=== PATIENT | female | born 1985 | race Caucasian/White ===

== ENCOUNTER 2020-03-15 12:22 | Emergency (ER) | payer OTHER ==
[~2020-03-15] VITALS: Ht 167.6 cm; Wt 73.9 kg
[2020-03-15 12:43] VITALS: BP 128/86
[2020-03-15] MEDS ORDERED: KETOROLAC 30 MG/ML VIAL IM ONE (13:25)
[2020-03-15] MEDS ORDERED: ONDANSETRON 4 MG ODT PO ONE (13:25)
[2020-03-15 16:44] LABS: APPEARANCE,URINE CLEAR (CLEAR); BILIRUBIN,URINE NEGATIVE (NEGATIVE); BLOOD, URINE 1+ (NEGATIVE); COLOR,URINE YELLOW (YELLOW); LEUKOCYTE ESTERASE ,URINE NEGATIVE (NEGATIVE); NITRITE, URINE NEGATIVE (NEGATIVE); UGLUCOSE NEGATIVE (NEGATIVE)
--- NOTE | 2020-03-15 16:49 | NUR ---
Patient discharged with v/s stable. Written and verbal after care instructions given and explained. Patient alert, oriented and verbalized understanding of instructions. Ambulatory with steady gait. All questions addressed prior to discharge. ID band removed. Patient advised to follow up with PMD. Rx of tramadol and zofran given. Patient educated on indication of medication including possible reaction and side effects. Opportunity to ask questions provided and answered.
[2020-03-15 17:06] LABS: WBC,URINE 0-5 /HPF (0-5)
== END 2020-03-15 16:49 | disposition home or self-care (01) ==
LOC: MED 12:22
DX: R10.2 Pelvic and perineal pain (principal); R11.2 Nausea with vomiting, unspecified; N93.9 Abnormal uterine and vaginal bleeding, unspecified; N83.202 Unspecified ovarian cyst, left side
CPT/HCPCS: 76856; 81001; 81025; 93976; 96372; 99284; J1885; Q0162

== ENCOUNTER 2020-08-05 16:20 | Emergency (ER) | payer OTHER ==
[~2020-08-05] VITALS: Ht 162.6 cm; Wt 73.5 kg
[2020-08-05 16:25] VITALS: BP 142/86
--- NOTE | 2020-08-05 16:33 | NUR ---
RUPERT CALDERON AT BEDSIDE EXAMINING PATIENT
--- NOTE | 2020-08-05 16:35 | NUR ---
PATIENT PRESENTS TO ED WITH RIGHT SIDED CHEST PAIN X2 HOURS . PT STATES SHE IS ALSO FEELING ANXIETY . DENIES N/V/D; SKIN IS PINK/WARM/DRY; AAOX4 WITH EVEN AND STEADY GAIT; LUNGS CLEAR BL; HR EVEN AND REGULAR; PT DENIES ANY FEVER, CP, SOB, OR COUGH AT THIS TIME; PATIENT STATES PAIN OF 5/10 AT THIS TIME; VSS; PATIENT POSITIONED FOR COMFORT; HOB ELEVATED; BEDRAILS UP X2; BED DOWN. ER MD MADE AWARE OF PT STATUS.
[2020-08-05] MEDS ORDERED: LORazepam 1 MG TAB PO ONE (17:05)
[2020-08-05] MEDS ORDERED: LORA-476 PO (18:03)
[2020-08-05 18:23] VITALS: BP 134/81
== END 2020-08-05 18:23 | disposition home or self-care (01) ==
LOC: MED 16:20
DX: F41.0 Panic disorder [episodic paroxysmal anxiety] (principal); R07.9 Chest pain, unspecified; Z79.899 Other long term (current) drug therapy
CPT/HCPCS: 71045; 81025; 93005; 99285

== ENCOUNTER 2020-10-01 09:04 | Emergency (ER) | payer OTHER ==
[~2020-10-01] VITALS: Ht 167.6 cm; Wt 73.9 kg
[~2020-10-01 09:04] MED LIST: LORA-476 PO
[2020-10-01 09:26] VITALS: BP 135/62
--- NOTE | 2020-10-01 09:32 | NUR ---
pt ambulated to bed 08.
--- NOTE | 2020-10-01 09:41 | NUR ---
35 Y FEMALE WITH COMPLAINTS OF PELVIC PAIN, VAGINAL BLEEDING/SPOTTING X YESTERDAY. PT ALSO STATES SHE HAS BEEN HAVING NAUSEA/VOMITTING. PT DENIES BLOOD IN VOMIT. PT STATES SHE HAS EXPERINCED PAIN ON/OFF FOR PAST MONTH DUE TO MEDICAL HX AND THIS MORNING SHE STATED PAIN WAS WORSE. PT STATES "SHE CALLED HER OB AND WAS TOLD TO COME TO THE ER DUE TO PAIN." PT STATES N/V STARTED LAST NIGHT AND HAS VOMITTED TWICE SINCE LAST NIGHT. PT STATES SHE HAS HAD VAGINAL BLEEDING X2 DAYS, BUT IS CONTROLLED AND "ONLY OCCURS WHEN SHE WIPES AND IS BROWN IN COLOR." PT STATES SHE IS CURRENTLY ON ORAL CONTRACEPTIVES TO HELP WITH HER OVARIAN CYST A&OX4. EQUAL CHEST RISE AND FALL NOTED. NO LABORED BREATHING NOTED. BED IN LOWEST POSITION. SIDERAIL X1 UP. PMH - OVARIAN CYST NKA
[2020-10-01] MEDS ORDERED: KETOROLAC 60 MG/2 ML VIAL IM ONE (10:10)
[2020-10-01] MEDS ORDERED: ONDA4TAB PO (10:10)
--- NOTE | 2020-10-01 10:43 | NUR ---
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
[2020-10-01 11:04] VITALS: BP 139/63
--- NOTE | 2020-10-01 11:05 | NUR ---
Patient discharged with v/s stable. Written and verbal after care instructions ABOUT [place] given and explained. Patient alert, oriented and verbalized understanding of instructions. Ambulatory with steady gait. All questions addressed prior to discharge. ID band removed. Patient advised to follow up with PMD. Rx of ZOFRAN given. Patient educated on indication of medication including possible reaction and side effects. Opportunity to ask questions provided and answered.
== END 2020-10-01 11:05 | disposition home or self-care (01) ==
LOC: MED 09:04
DX: N93.8 Other specified abnormal uterine and vaginal bleeding (principal); T38.4X5A Adverse effect of oral contraceptives, initial encounter; Y92.89 Other specified places as the place of occurrence of the external cause
CPT/HCPCS: 81002; 81025; 96372; 99283; J1885

== ENCOUNTER 2020-12-30 08:00 | Emergency (ER) | payer OTHER ==
[~2020-12-30] VITALS: Ht 167.6 cm; Wt 74.8 kg
[~2020-12-30 08:00] MED LIST changes: +ONDA4TAB PO
[2020-12-30 08:06] VITALS: BP 136/79
--- NOTE | 2020-12-30 08:36 | NUR ---
DR BROWN AT BEDSIDE EVALUATING PT
[2020-12-30] MEDS ORDERED: IBUPROFEN 600 MG TAB PO ONE (08:40)
--- NOTE | 2020-12-30 08:45 | NUR ---
35 Y/O FEMALE C/O VAGINAL BLEEDING AND PELVIC/LOWER ABDOMINAL PAIN X 5 DAYS. PT DENIES BLOOD CLOTS AND REPORTS IT SEEMS LIKE A PERIOD, LMP 12/10/20. PT REPORTS PAIN IS 4/10 THAT SHE DESCRIBES CRAMPING/PRESSURE, WORSE WITH MOVEMENT. PT DENIES DYSURIA. PT A/O X4 WITH EVEN AND UNLABORED RESPIRATIONS PMH: BREE OVARIAN CYSTS NKDA
--- NOTE | 2020-12-30 08:51 | NUR ---
PT DOES NOT WISH TO TAKE MOTRIN AT THIS TIME
[2020-12-30 08:57] LABS: APPEARANCE,URINE CLEAR (CLEAR); BILIRUBIN,URINE NEGATIVE (NEGATIVE); BLOOD, URINE 1+ (NEGATIVE); COLOR,URINE YELLOW (YELLOW); LEUKOCYTE ESTERASE ,URINE NEGATIVE (NEGATIVE); NITRITE, URINE NEGATIVE (NEGATIVE); UGLUCOSE NEGATIVE (NEGATIVE)
--- NOTE | 2020-12-30 08:59 | NUR ---
US AT BEDSIDE
[2020-12-30 09:09] LABS: RBC,URINE 0-5 /HPF (0-5); WBC,URINE 0-5 /HPF (0-5)
[2020-12-30] MEDS ORDERED: IBUP-2213 PO (10:15)
[2020-12-30 11:00] VITALS: BP 136/79
--- NOTE | 2020-12-30 11:00 | NUR ---
Patient discharged with v/s stable. Written and verbal after care instructions given and explained. Patient verbalized understanding. Ambulatory with steady gait. All questions addressed prior to discharge. Advised to follow up with PMD.
== END 2020-12-30 11:00 | disposition home or self-care (01) ==
LOC: MED 08:00
DX: N93.8 Other specified abnormal uterine and vaginal bleeding (principal); T38.4X5A Adverse effect of oral contraceptives, initial encounter; Z79.899 Other long term (current) drug therapy; Y92.89 Other specified places as the place of occurrence of the external cause
CPT/HCPCS: 76830; 76856; 81001; 81025; 93976; 99284; Q0092; 81002

== ENCOUNTER 2021-07-09 19:17 | Emergency (ER) | payer OTHER ==
[~2021-07-09] VITALS: Ht 167.6 cm; Wt 73.9 kg
[~2021-07-09 19:17] MED LIST changes: +IBUP-2213 PO
[2021-07-09 19:42] VITALS: BP 140/91
--- NOTE | 2021-07-09 21:02 | NUR ---
PT AMBULATORY TO BED #4
--- NOTE | 2021-07-09 21:39 | NUR ---
PT BIB SELF WITH COMPLAINT OF ANXIETY DUE TO NOTICING A LUMP ON HER LEFT NECK/THRYROID AREA, PT STATES SHE "GOOGLED" POSSIBLE DX AND THOUGHT IT COULD POSSIBLY BE CANCER. PT STATES SHE HAS BEEN HAVING ANXIETY AND SIMILAR SYMPTOMS FOR APPROXIMATELY 6 YEARS. SHE IS CURRENTLY IN THERAPY AND TAKES LORAZEPAM PRN FOR ANXIETY. DENIES ANY PAIN OR CHEST PAIN. PMH: ANXIETY MEDICATIONS: LORAZEPAM
[2021-07-09] MEDS ORDERED: LORazepam 1 MG TAB PO ONE (21:50)
[2021-07-09] MEDS ORDERED: HYDR-1093 PO (21:55)
[2021-07-09] MEDS ORDERED: LORazepam 1 MG TAB ONE (22:52)
[2021-07-09 22:59] VITALS: BP 140/91
--- NOTE | 2021-07-09 23:00 | NUR ---
Patient discharged with v/s stable. Written and verbal after care instructions given and explained. Patient alert, oriented and verbalized understanding of instructions. Ambulatory with steady gait. All questions addressed prior to discharge. ID band removed. Patient advised to follow up with PMD. Rx of HYDROXYZINE HCL given. Patient educated on indication of medication including possible reaction and side effects. Opportunity to ask questions provided and answered.
== END 2021-07-09 23:00 | disposition home or self-care (01) ==
LOC: MED 19:17
DX: F41.9 Anxiety disorder, unspecified (principal); Z79.1 Long term (current) use of non-steroidal anti-inflammatories (NSAID); Z79.899 Other long term (current) drug therapy
CPT/HCPCS: 93005; 99283

== ENCOUNTER 2021-11-27 10:55 | Emergency (ER) | payer OTHER ==
[~2021-11-27] VITALS: Ht 167.6 cm; Wt 73.5 kg
[~2021-11-27 10:55] MED LIST changes: +HYDR-1093 PO
[2021-11-27 11:03] VITALS: BP 148/83
--- NOTE | 2021-11-27 11:17 | NUR ---
PT AMBULATED TO ER BED 6
--- NOTE | 2021-11-27 11:28 | NUR ---
DR PARISH AT BEDSIDE FOR EVAL
--- NOTE | 2021-11-27 11:31 | NUR ---
36 Y/O FEMALE BIB SELF C/O BILATERAL LOWER BACK PAIN X5DAYS AND BURNING URINATION. PER PT SHE WAS PRESCRIBED MACROBID BY HER PCP, ON 3RD DAY, DENIES ANY CHANGE IN CONDITION. URINE NOTED TO BE BROWN IN COLOR. DENIES FEVERS, CHILLS, N/V AT THE MOMENT NKA PMH: DENIES
[2021-11-27] MEDS ORDERED: NACL 0.9% 2,000 ML IV ONE (11:35)
[2021-11-27] MEDS ORDERED: KETOROLAC 30 MG/ML VIAL IVP ONE (11:35)
[2021-11-27 12:09] LABS: BASOPHILS # (AUTO) 0.1 K/uL (0.00-0.22); BASOPHILS % (AUTO) 0.9 % (0.0-2.0); EOSINOPHILS # (AUTO) 0.1 K/uL (0-0.4); HEMATOCRIT 36.9 % (36-48); HEMOGLOBIN 12.3 g/dL (12.0-16.0); LYMPHOCYTES # (AUTO) 3.3 K/uL (2.5-16.5); LYMPHOCYTES % (AUTO) 26.5 % (20.5-51.1); MEAN CORPUSCULAR HEMOGLOBIN 29 pg (27-31); MEAN CORPUSCULAR HGB CONC 33 g/dL (33-37); MEAN CORPUSCULAR VOLUME 85.6 fL (80-94); MONOCYTES # (AUTO) 0.4 K/uL (0.8-1.0); MONOCYTES % (AUTO) 3.3 % (1.7-9.3); NEUTROPHILS # (AUTO) 8.4 K/uL (1.8-7.7); NEUTROPHILS % (AUTO) 68.3 % (42.2-75.2); PLATELET COUNT (AUTO) 309 K/uL (140-450); RED BLOOD CELL COUNT(AUTO) 4.31 MIL/uL (4.20-5.40); RED CELL DISTRIBUTION WIDTH 13.2 % (11.6-13.7); WHITE BLOOD COUNT (AUTO) 12.3 K/uL (4.8-10.8)
--- NOTE | 2021-11-27 12:31 | NUR ---
PT AMBULATED TO BATHROOM
[2021-11-27 12:34] LABS: ALBUMIN 3.8 g/dL (3.4-5.0); ANION GAP 17.2 (8-16); CARBON DIOXIDE 23.4 mmol/L (21-32); CREATININE 0.7 mg/dL (0.6-1.3); POTASSIUM 3.6 mmol/L (3.5-5.1); TOTAL BILIRUBIN 0.2 mg/dL (0.0-1.0)
[2021-11-27 13:02] LABS: APPEARANCE,URINE SL CLOUDY (CLEAR); BILIRUBIN,URINE NEGATIVE (NEGATIVE); BLOOD, URINE 1+ (NEGATIVE); COLOR,URINE ORANGE (YELLOW); LEUKOCYTE ESTERASE ,URINE TRACE (NEGATIVE); NITRITE, URINE NEGATIVE (NEGATIVE); UGLUCOSE TRACE (NEGATIVE)
[2021-11-27 13:18] LABS: WBC,URINE 0-5 /HPF (0-5)
[2021-11-27 13:30] VITALS: BP 139/73
[2021-11-27] MEDS ORDERED: NACL 0.9% 1,000 ML IV ONE (13:35)
[2021-11-27] MEDS ORDERED: LID5T TP (13:39)
[2021-11-27] MEDS ORDERED: IBUP-2213 PO (13:39)
[2021-11-27] MEDS ORDERED: METH-1681 PO (13:39)
--- NOTE | 2021-11-27 14:10 | NUR ---
PER ERMD, PT OK TO DC HOME WITH INCREASED HR
--- NOTE | 2021-11-27 14:23 | NUR ---
Patient discharged with v/s stable. Written and verbal after care instructions ABOUT ACUTE BACK PAIN given and explained. Patient alert, oriented and verbalized understanding of instructions. Ambulatory with steady gait. All questions addressed prior to discharge. ID band removed. Patient advised to follow up with PMD. Rx of MOTRIN, LIDOERM, ROBAXIN given. Patient educated on indication of medication including possible reaction and side effects. Opportunity to ask questions provided and answered.
== END 2021-11-27 14:22 | disposition home or self-care (01) ==
LOC: MED 10:55
DX: M54.50 Low back pain, unspecified (principal); Z20.822 Contact with and (suspected) exposure to COVID-19; R10.9 Unspecified abdominal pain
CPT/HCPCS: 36415; 76856; 80053; 81001; 81025; 82550; 82553; 83605; 83874; 83880; 84484; 85025; 87040; 87426; 87804; 93005; 96361; 96374; 99285; J1885; Q0092

== ENCOUNTER 2023-09-15 17:17 | Emergency (ER) | payer OTHER ==
[~2023-09-15] VITALS: Ht 167.6 cm; Wt 74.8 kg
[~2023-09-15 17:17] MED LIST changes: +LID5T TP; +METH-1681 PO
[2023-09-15 17:32] VITALS: BP 147/78; PULSE 100; RESP 18; TEMP 98.2; O2SAT 100
[2023-09-15 18:00] VITALS: O2SAT 100
[2023-09-15 18:25] LABS: BASOPHILS # (AUTO) 0.1 K/uL (0.00-0.22); BASOPHILS % (AUTO) 0.4 % (0.0-2.0); EOSINOPHILS # (AUTO) 0.1 K/uL (0-0.4); EOSINOPHILS % (AUTO) 1.2 % (0.0-4.0); HEMOGLOBIN 12.9 g/dL (12.0-16.0); LYMPHOCYTES # (AUTO) 4.9 K/uL (2.5-16.5); MEAN CORPUSCULAR HEMOGLOBIN 28 pg (27-31); MEAN CORPUSCULAR HGB CONC 33 g/dL (33-37); MEAN CORPUSCULAR VOLUME 84.7 fL (80-94); MONOCYTES # (AUTO) 0.4 K/uL (0.8-1.0); MONOCYTES % (AUTO) 3.6 % (1.7-9.3); NEUTROPHILS # (AUTO) 6.2 K/uL (1.8-7.7); NEUTROPHILS % (AUTO) 52.8 % (42.2-75.2); PLATELET COUNT (AUTO) 258 K/uL (140-450); RED CELL DISTRIBUTION WIDTH 13.2 % (11.6-13.7); WHITE BLOOD COUNT (AUTO) 11.7 K/uL (4.8-10.8)
[2023-09-15 18:30] LABS: APPEARANCE,URINE CLEAR (CLEAR); BILIRUBIN,URINE NEGATIVE (NEGATIVE); BLOOD, URINE TRACE-I (NEGATIVE); COLOR,URINE YELLOW (YELLOW); LEUKOCYTE ESTERASE ,URINE TRACE (NEGATIVE); NITRITE, URINE NEGATIVE (NEGATIVE); PROTEIN,URINE NEGATIVE (NEGATIVE); UGLUCOSE NEGATIVE (NEGATIVE); UROBILINOGEN,URINE 0.2 EU/dL (0.2 - 1)
[2023-09-15 18:37] LABS: ANION GAP 15.4 (8-16); CALCIUM 8.8 mg/dL (8.5-10.1); CARBON DIOXIDE 25.2 mmol/L (21-32); CREATININE 0.6 mg/dL (0.6-1.3); POTASSIUM 3.6 mmol/L (3.5-5.1)
[2023-09-15 18:41] LABS: ALBUMIN 3.8 g/dL (3.4-5.0); BILIRUBIN,DIRECT 0.1 mg/dL (0.0-0.3); TOTAL BILIRUBIN 0.2 mg/dL (0.0-1.0); TOTAL PROTEIN, SERUM 8.3 g/dL (6.4-8.2)
[2023-09-15] MEDS ORDERED: KETOROLAC 30 MG/ML VIAL ONE (19:19)
[2023-09-15] MEDS ORDERED: ONDANSETRON 4 MG ODT ONE (19:20)
[2023-09-15] MEDS: ONDANSETRON 4 MG ODT PO ONE (19:22)
[2023-09-15] MEDS: KETOROLAC 30 MG/ML VIAL IM ONE (19:22)
[2023-09-15] MEDS ORDERED: ONDA-188 SL (19:44)
[2023-09-15] MEDS ORDERED: ACET-8905 PO (19:44)
== END 2023-09-15 19:55 | disposition home or self-care (01) ==
LOC: MED 17:17
DX: D25.9 Leiomyoma of uterus, unspecified (principal); Z79.1 Long term (current) use of non-steroidal anti-inflammatories (NSAID); Z79.899 Other long term (current) drug therapy
CPT/HCPCS: 36415; 76856; 80048; 80076; 81003; 81025; 83690; 85025; 93976; 96372; 99285; J1885; Q0092; Q0162